=== PATIENT | female | born 2000 | race Caucasian/White ===

== ENCOUNTER 2019-10-10 10:02 | Observation (INO) | payer BC, SELFPAY ==
[2019-10-10 12:00] VITALS: BP 128/63; PULSE 86
[2019-10-10 12:16] LABS: Basophils Percent Auto 0.2 % (0.2-1.2); Eosinophils Absolute Auto 0.2 K/mm3 (0-0.3); Eosinophils Percent Auto 1.2 % (0-4.4); Hematocrit 33.3 % (37.0-47.0); Hemoglobin 11.5 g/dL (12.0-15.0); Immature Granulocyte Absolute 0.16 K/mm3 (0.00-0.031); Immature Granulocyte Percent A 1.2 % (0-0.5); Lymphocytes Absolute Auto 1.97 K/mm3 (0.9-3.2); Lymphocytes Percent Auto 14.7 % (18.3-44.2); Mean Corpuscular HGB Conc 34.5 g/dl (32-36); Mean Corpuscular Volume 92.8 fl (80-100); Mean Platelet Volume 9.7 fl (7.4-10.4); Monocytes Absolute Auto 1.4 K/mm3 (0.1-0.6); Monocytes Percent Auto 10.2 % (2.6-8.5); Neutrophils Absolute Auto 9.7 K/mm3 (1.3-6.7); Neutrophils Percent Auto 72.5 % (45.5-73.1); Platelet Count Result 304 k/mm3 (150-375); Red Blood Count 3.59 M/mm3 (4.2-5.4); Red Cell Distribution Width 12.5 % (11.5-14.5); White Blood Count 13.4 K/mm3 (4.5-10.0)
--- NOTE | 2019-11-01 07:43 | PM.OBTRLD ---
OB - Triage/Final Diagnosis Evaluation Laboratory results: Laboratory Tests 10/10/19 12:09 WBC 13.4 H RBC 3.59 L Hgb 11.5 L Hct 33.3 L MCV 92.8 MCH 32.0 MCHC 34.5 RDW 12.5 Plt Count 304 MPV 9.7 Immature Gran % (Auto) 1.2 H Neut % (Auto) 72.5 Lymph % (Auto) 14.7 L [place] % (Auto) 10.2 H Eos % (Auto) 1.2 Baso % (Auto) 0.2 Lymph # (Auto) 1.97 [place] # (Auto) 1.4 H Eos # (Auto) 0.2 Baso # (Auto) 0.0 Abs Immat Gran (auto) 0.16 H Absolute Neuts (auto) 9.7 H Absolute Nucleated RBC 0.0 Nucleated RBC % 0.0 Final Diagnosis (1) Spotting affecting in second trimester: Code(s): O26.852 - Spotting complicating , second trimester Status: Acute
== END 2019-10-10 13:20 | disposition home or self-care (01) ==
PROVIDERS: Admitting Provider Obstetrics & Gynecology; Visit Provider Obstetrics & Gynecology
DX: O26.852 Spotting complicating pregnancy, second trimester (principal); Z3A.00 Weeks of gestation of pregnancy not specified
CPT/HCPCS: 36415; 85025; G0378; G0379

== ENCOUNTER → 2019-10-18 16:00 | Outpatient (CLI) | payer BC, SELFPAY ==
--- NOTE | ~2019-10-18 | US_ITS ---
EXAMINATION: US OB limited DATE: 10/18/2019 16:17 INDICATION: Vaginal bleeding during third trimester , follow-up low-lying placenta TECHNIQUE: Real-time ultrasound of the pelvis was performed. The interpreting radiologist was not pre sent for the study. COMPARISON: None. FINDINGS: There is a single living fetus in vertex presentation. The placenta is posterior and comple tely covers the internal cervical os. cardiac activity and movement are noted. hear t rate is 146 beats per minute (bpm). The amniotic fluid index is subjectively normal. IMPRESSION: 1. Complete placenta previa. 2. Single living fetus in vertex presentation. Reviewed, dictated and finalized at location A.
== END ==
PROVIDERS: Visit Provider Nurse Practitioner
DX: O44.42 Low lying placenta NOS or without hemorrhage, second trimester (principal); Z3A.00 Weeks of gestation of pregnancy not specified
CPT/HCPCS: 76815

== ENCOUNTER → 2019-11-25 10:37 | Outpatient (CLI) | payer OTHER, BC, SELFPAY ==
--- NOTE | ~2019-11-25 | US_ITS ---
US OB limited 11/25/2019 11:40 Indication: Follow-up placenta previa. Procedure: Real-time Limited obstetrical ultrasound using transabdominal technique Comparison: Ultrasound dated 10/18/2019 Findings: There is a single living intrauterine in vertex presentation. Placenta is posteri or measuring 9.1 cm to the cervix. Amniotic fluid is subjectively normal. heart rate is 124 BPM . Impression: 1: Single living intrauterine in vertex presentation. 2: Posterior placenta without previa. Reviewed, dictated and finalized at location A. Impression: 1: Single living intrauterine in vertex presentation. 2: Posterior placenta without previa.
== END ==
PROVIDERS: Visit Provider Obstetrics & Gynecology Gynecology
DX: O44.40 Low lying placenta NOS or without hemorrhage, unspecified trimester (principal); Z3A.00 Weeks of gestation of pregnancy not specified
CPT/HCPCS: 76815

== ENCOUNTER 2019-12-04 04:50 | Inpatient (IN) | payer BC, SELFPAY ==
[2019-12-03 23:01] VITALS: BP 132/83; PULSE 85
[2019-12-03 23:31] VITALS: BP 128/82; PULSE 92
[2019-12-03] MEDS: NIFEdipine 10 MG CAPSULE PO (23:49)
[2019-12-03 23:50] VITALS: BMI 32.8
--- NOTE | 2019-12-03 23:50 | OBADM ---
This patient, Mariaa Merritt, admitted to the OB room Labor/Delivery/Recovery 105 for observation. Patient/family oriented to hospital policies and general routines including ID bracelet, bed and alarms, visiting hours, pain management, procedures, bathroom and other care routines, personal items, smoking policy, room service/diet, and visiting hours. Patient/Family are encouraged to report perceived risks to care and to ask questions if they do not understand what they are told or what they should do.
[2019-12-04] VITALS (82 sets, daily range): BP systolic 61–135; BP diastolic 27–81; PULSE 61–138; RESP 12–20; TEMP 36.1–37; O2SAT 93–100
--- NOTE | ~2019-12-04 | US_ITS ---
EXAMINATION: US OB limited DATE: 12/04/2019 05:24 INDICATION: Vaginal bleeding during third trimester , history of placenta previa TECHNIQUE: Real-time ultrasound of the pelvis was performed. The interpreting radiologist was not pre sent for the study. COMPARISON: None. FINDINGS: There is a single living fetus in vertex presentation. The placenta is fundal/posterior and 8.8 cm from the internal cervical os. cardiac activity and movement are noted. hea rt rate is 137 beats per minute (bpm). The amniotic fluid index is subjectively normal. IMPRESSION: 1. Single living fetus in vertex presentation. 2. Posterior/fundal placenta 8.8 cm from the internal cervical os. Reviewed, dictated and finalized at location A.
[2019-12-04] MEDS: NIFEdipine 10 MG CAPSULE PO ×2 (03:16→04:06)
[2019-12-04 03:29] LABS: Basophils Absolute Auto 0.1 K/mm3 (0.0-0.1); Basophils Percent Auto 0.6 % (0.2-1.2); Eosinophils Absolute Auto 0.4 K/mm3 (0-0.3); Eosinophils Percent Auto 2.8 % (0-4.4); Hematocrit 32.2 % (37.0-47.0); Hemoglobin 10.5 g/dL (12.0-15.0); Immature Granulocyte Percent A 0.7 % (0-0.5); Lymphocytes Absolute Auto 2.68 K/mm3 (0.9-3.2); Lymphocytes Percent Auto 19.4 % (18.3-44.2); Mean Corpuscular HGB Conc 32.6 g/dl (32-36); Mean Corpuscular Hemoglobin 29.3 pg (26-34); Mean Corpuscular Volume 89.9 fl (80-100); Mean Platelet Volume 10.7 fl (7.4-10.4); Monocytes Absolute Auto 1.2 K/mm3 (0.1-0.6); Monocytes Percent Auto 8.3 % (2.6-8.5); Neutrophils Absolute Auto 9.4 K/mm3 (1.3-6.7); Neutrophils Percent Auto 68.2 % (45.5-73.1); Platelet Count Result 293 k/mm3 (150-375); Red Blood Count 3.58 M/mm3 (4.2-5.4); Red Cell Distribution Width 12.7 % (11.5-14.5); White Blood Count 13.8 K/mm3 (4.5-10.0)
[2019-12-04] MEDS: LACTATED RINGERS 1,000 ML 999 ML IV CONT (04:06)
--- NOTE | 2019-12-04 05:20 | P.HP_ITS ---
Obstetrics - Admit Note Admission Note: record reviewed. Pertinent additions to the history and/or any subsequent changes in the physical findings that are not consistent with the expected course of the were found. Additions to the history and/or subsequent changes in the physical findings follow. 19 yo G1 at 34 6/7 wks here with complaint of leaking and bleeding. On arrival, dried blood down legs and minimal contractions. Contractions increased slightly and given Procardia x 1. Around 3 am, passed 100 cc clot and contractions increased. Given second procardia, IV started, u/s ordered, and labs ordered. Per RN when got up to bathroom, had watery blood noted dripping. Had another gush of about 355 cc and I was called to come to evaluate. Bedside u/s by me shows vertex without previa, low fluid with one pocket at fundus, and normal appearing placenta. U/s arrived as I was finished and agreed with assess ment. Cervix checked and 4/100/-3. Will labor and obs FHTs and bleeding.
[2019-12-04] MEDS: AMPICILLIN 2 GM/NS 100 ML 2 GM/100 ML BAG IVPB (05:21)
--- NOTE | 2019-12-04 05:40 | WPDANESEPPF ---
Anes - Initial Pre Proc Eval Procedure: Operation Date: 12/04/19 05:30 Proposed Procedures p Section - Alejandra Garcia MD Date/Time: 12/04/19 06:59 Surgeon: Alejandra Garcia MD Pre Op Diagnosis: bradycardia Pre Op Diagnosis: IUP 34 6/7 wks; bradycardia Patient Data Age: 19 Gender: F Height: 1.6 m Weight: 84 kg Last Vital Signs Temp 36.7 C 12/04/19 05:20 Pulse 79 12/04/19 06:46 BP 98/54 L 12/04/19 06:46 Pulse Ox 100 12/04/19 06:58 Allergies Allergy/AdvReac Type Severity Reaction Status Date / Time No Known Allergies Allergy Verified 12/03/19 23:37 Home Medications Medication Instructions Recorded Confirmed Type PNV cmb#95-ferrous fumarate-FA 1 tablet PO DAILY 12/04/19 12/04/19 History [] nitrofurantoin monohyd/m-cryst 100 mg PO DAILY 12/04/19 12/04/19 History [Macrobid] Laboratory Tests 12/04/19 12/04/19 12/04/19 03:20 03:20 05:26 WBC 13.8 K/mm3 H K/mm3 (4.5-10.0) RBC 3.58 M/mm3 L M/mm3 (4.2-5.4) Hgb 10.5 g/dL L g/dL (12.0-15.0) Hct 32.2 % L % (37.0-47.0) MCV 89.9 fl fl (80-100) MCH 29.3 pg pg (26-34) MCHC 32.6 g/dl g/dl (32-36) RDW 12.7 % % (11.5-14.5) Plt Count 293 k/mm3 k/mm3 (150-375) MPV 10.7 fl H fl (7.4-10.4) Immature Gran % (Auto) 0.7 % H % (0-0.5) Neut % (Auto) 68.2 % % (45.5-73.1) Lymph % (Auto) 19.4 % % (18.3-44.2) [place] % (Auto) 8.3 % % (2.6-8.5) Eos % (Auto) 2.8 % % (0-4.4) Baso % (Auto) 0.6 % % (0.2-1.2) Lymph # (Auto) 2.68 K/mm3 K/mm3 (0.9-3.2) [place] # (Auto) 1.2 K/mm3 H K/mm3 (0.1-0.6) Eos # (Auto) 0.4 K/mm3 H K/mm3 (0-0.3) Baso # (Auto) 0.1 K/mm3 K/mm3 (0.0-0.1) Abs Immat Gran (auto) 0.10 K/mm3 H K/mm3 (0.00-0.031) Absolute Neuts (auto) 9.4 K/mm3 H K/mm3 (1.3-6.7) Absolute Nucleated RBC 0.0 K/mm3 K/mm3 (0.0-0.012) Nucleated RBC % 0.0 % % (0.0-0.2) Hep Bs Antigen Rubella IgG Antibody Pending Blood Type A Positive Antibody Screen Negative 12/04/19 05:26 WBC RBC Hgb Hct MCV MCH MCHC RDW Plt Count MPV Immature Gran % (Auto) Neut % (Auto) Lymph % (Auto) [place] % (Auto) Eos % (Auto) Baso % (Auto) Lymph # (Auto) [place] # (Auto) Eos # (Auto) Baso # (Auto) Abs Immat Gran (auto) Absolute Neuts (auto) Absolute Nucleated RBC Nucleated RBC % Hep Bs Antigen Pending Rubella IgG Antibody Blood Type Antibody Screen Patient hx anesthesia problems: none Family hx anesthesia problems: none [facility] Past Medical History Medical History Depression Spotting affecting in second trimester Anes - Eval Final PreProcedure Day of Procedure 12/04/19 06:59 Patient weight: overweight Heart: regular rate and rhythm Lungs: clear to auscultation and normal air movement Airway: Mallampati scale class II Neurological: alert and oriented ASA classification: II Emergent: yes Anesthetic plan: proceed Anesthesia type and monitoring: regional spinal and standard monitoring Informed Consent: The patient's anesthetic plan and its attendant risks and benefits were discussed with the patient/family/POA. Questions were solicited and answers provided to the satisfaction of the patient/family/POA.
--- NOTE | 2019-12-04 06:17 | PM.IMHP ---
H&P: HPI History of Present Illness Date/Time: 12/04/19 06:17 Chief complaint: Vag. bleed Narrative: Mariaa Merritt is a 19 year old female G1 here with PTL, PROM, and bleeding at 34 6/7 wks. See admit note. As I was writing my admit note, deep variable followed by 6 min bradycardia. Taken to OR for urgent csection for bradycardia. On arrival, FHTs back to 120's and remained for several minutes. Decision was made to proceed with csection but to place spinal on side while monitoring FHTs. FHT's remained reassuring and no further decels. Proceeded with csection under spinal. [facility] Past Medical History Medical History (Updated 12/04/19 @ 06:23 by Alejandra Garcia MD) Depression Spotting affecting in second trimester Meds Home Medications and Allergies Home Medications Medication Instructions Recorded Confirmed Type PNV cmb#95-ferrous fumarate-FA 1 tablet PO DAILY 12/04/19 12/04/19 History [] nitrofurantoin monohyd/m-cryst 100 mg PO DAILY 12/04/19 12/04/19 History [Macrobid] Allergies Allergy/AdvReac Type Severity Reaction Status Date / Time No Known Allergies Allergy Verified 12/03/19 23:37 Vital Signs Vital Signs - 24 hr 12/03/19 23:01 12/03/19 23:31 12/04/19 00:01 Temperature Pulse Rate 85 92 82 Blood Pressure 132/83 128/82 128/79 Pulse Oximetry 12/04/19 00:02 12/04/19 01:01 12/04/19 01:31 Temperature 98.2 F Pulse Rate 87 88 Blood Pressure 130/81 119/63 Pulse Oximetry 12/04/19 02:01 12/04/19 02:31 12/04/19 03:01 Temperature Pulse Rate 92 98 94 Blood Pressure 122/60 122/66 114/74 Pulse Oximetry 12/04/19 03:17 12/04/19 03:31 12/04/19 04:01 Temperature 98.3 F Pulse Rate 87 78 Blood Pressure 125/76 106/56 L Pulse Oximetry 12/04/19 04:09 12/04/19 04:14 12/04/19 04:16 Temperature Pulse Rate 87 Blood Pressure 122/62 Pulse Oximetry 96 100 12/04/19 04:19 12/04/19 04:24 12/04/19 04:29 Temperature Pulse Rate Blood Pressure Pulse Oximetry 99 100 100 12/04/19 04:31 12/04/19 04:34 12/04/19 04:39 Temperature Pulse Rate 81 Blood Pressure 135/79 Pulse Oximetry 100 100 12/04/19 04:44 12/04/19 04:48 12/04/19 04:49 Temperature Pulse Rate 138 H Blood Pressure 103/27 L Pulse Oximetry 100 100 12/04/19 04:54 12/04/19 04:59 12/04/19 05:02 Temperature Pulse Rate 89 Blood Pressure 134/74 Pulse Oximetry 100 100 12/04/19 05:04 12/04/19 05:19 12/04/19 05:20 Temperature 98.1 F Pulse Rate Blood Pressure Pulse Oximetry 100 100 12/04/19 05:23 12/04/19 05:24 12/04/19 05:26 Temperature Pulse Rate 91 90 84 Blood Pressure 61/47 L 74/45 L 104/53 L Pulse Oximetry 100 12/04/19 05:29 Temperature Pulse Rate Blood Pressure Pulse Oximetry 100 Exam Const: General: uncomfortable (with contractions) GI: GI Palp: Yes Soft to palpation, No Tenderness to palpation present (GI) and No Guarding due to palpation present (GI) : Other: cervix 4/100/-3 vtx H&P: Results Labs Labs: Short CBC 12/04/19 Range/Units 03:20 WBC 13.8 H (4.5-10.0) K/mm3 Hgb 10.5 L (12.0-15.0) g/dL Hct 32.2 L (37.0-47.0) % Plt Count 293 (150-375) k/mm3 Assessment and Plan Assessment and plan (1) with 34 to 36 completed weeks gestation: Status: Acute (2) bradycardia: Status: Acute Assessment and Plan: Proceed with urgent csection Peds present (3) Vaginal bleeding during : Code(s): O46.90 - Antepartum hemorrhage, unspecified, unspecified trimester Status: Acute (4) labor: Code(s): O60.00 - labor without delivery, unspecified trimester Status: Acute (5) PROM (premature rupture of membranes): Code(s): O42.90 - Premature rupture of membranes, unspecified as to length of time between rupture and onset of labor, unspecified weeks of gestation
--- NOTE | 2019-12-04 06:24 | PM.OBDSVD ---
DS: Admitting Diagnosis Admitting Diagnosis Admitting Diagnosis: Vaginal bleed at 34 6/7 wks DS: Discharge Diagnosis Discharge Diagnosis (1) with 34 to 36 completed weeks gestation: Status: Acute (2) bradycardia: Status: Acute (3) Vaginal bleeding during : Code(s): O46.90 - Antepartum hemorrhage, unspecified, unspecified trimester Status: Acute (4) PROM (premature rupture of membranes): Code(s): O42.90 - Premature rupture of membranes, unspecified as to length of time between rupture and onset of labor, unspecified weeks of gestation Status: Acute (5) labor: Code(s): O60.00 - labor without delivery, unspecified trimester Status: Acute OB - DS: Summary OB Procedures : Ultrasound OB Procedures Intrapartum: low cervical, transverse OB Procedures: : None Peripartum Data Infant Delivery Method: Section complications: none Status at Discharge Functional status at discharge: independent ambulation Overall status at discharge: patient is progressing back to baseline Time Spent with Patient Time attestation: Total time spent providing and/or coordinating discharge services: DS: Data Data Completed and Pending Labs on day of discharge: Labs from last 24 hours 12/04/19 12/04/19 12/04/19 05:26 05:26 03:20 WBC RBC Hgb Hct MCV MCH MCHC RDW Plt Count MPV Immature Gran % (Auto) Neut % (Auto) Lymph % (Auto) [place] % (Auto) Eos % (Auto) Baso % (Auto) Lymph # (Auto) [place] # (Auto) Eos # (Auto) Baso # (Auto) Abs Immat Gran (auto) Absolute Neuts (auto) Absolute Nucleated RBC Nucleated RBC % Hep Bs Antigen Pending Rubella IgG Antibody Pending Blood Type A Positive Antibody Screen Negative 12/04/19 03:20 WBC 13.8 H RBC 3.58 L Hgb 10.5 L Hct 32.2 L MCV 89.9 MCH 29.3 MCHC 32.6 RDW 12.7 Plt Count 293 MPV 10.7 H Immature Gran % (Auto) 0.7 H Neut % (Auto) 68.2 Lymph % (Auto) 19.4 [place] % (Auto) 8.3 Eos % (Auto) 2.8 Baso % (Auto) 0.6 Lymph # (Auto) 2.68 [place] # (Auto) 1.2 H Eos # (Auto) 0.4 H Baso # (Auto) 0.1 Abs Immat Gran (auto) 0.10 H Absolute Neuts (auto) 9.4 H Absolute Nucleated RBC 0.0 Nucleated RBC % 0.0 Hep Bs Antigen Rubella IgG Antibody Blood Type Antibody Screen Discharge Plan Discharge Attending physician on discharge: Alejandra Garcia Consulting providers: Abraham Heck Discharging Clinician: Alejandra Garcia Anticipated Discharge Date/Time: 12/07/19 06:25 Patient Disposition: Home, Self-Care Activity: may shower, may drive after 2 weeks and pelvic rest Diet: regular Wound Care Instructions: incision open to air Discharge Instructions: Education: Mom and Baby Guide Given to: Mother Follow-Up: Call your delivering provider's office for an appointment to be seen in: 1 Week [facility]. Appointment Date/Time: deferred; OK'd with Dr. Paulino; mother to see Dr. Garcia in the office in one week. BREAST CARE: * Wear a snug supportive bra. * For engorgement discomfort: Breast Feeding: * Apply warm moist washcloths * Express milk as needed to relieve engorgement * Wear loose clothing Bottle Feeding: * May apply ice packs * For sore nipples: * Identify correct latch-on * Apply warm moist washcloths before and after nursing * Air dry nipples after nursing * May apply Lansinoh cream to nipples ABDOMINAL INCISION: (if applicable) * Allow incision to air dry * Do NOT use lotions for powders on your incision * When showering, allow soap and water to run over the incision, but do not wash incision EPISIOTOMY/PERINEAL CARE: * Unt
--- NOTE | 2019-12-04 06:26 | P.OP_ITS ---
Procedure Note - Detailed Date of procedure: 12/04/19 Pre-op diagnosis: IUP 34 6/7 wks; bradycardia Vaginal bleeding; PTL; PROM Post-op diagnosis: same Procedure performed: LTCS Description of procedure: The patient was taken to the operating room for emergent . Upon arrival to the operating room heart tones were back to a normal range at 120's. Decision was made to observe heart tones and then decide on anesthesia. heart tones remained in the normal range so decision was made to proceed with spinal on the patient's side while monitoring heart tones. Spinal anesthesia was placed. Patient was returned to her supine position with a leftward tilt. Patient was prepped and draped in the usual sterile fashion. Once anesthesia was deemed adequate, Pfannenstiel skin incision was made with a scalpel and carried down to the underlying layer of fascia. Fascia was nicked in the midline with the scalpel. Fascia was extended laterally using Quinones scissors. Ochsner was used to tent the fascia which was then dissected off using sharp and blunt dissection. The rectus muscles were in the midline and the peritoneum tented. Peritoneum was entered with Metzenbaum. The incision is extended with blunt traction. Bladder blade is placed and the vesicouterine peritoneum was tented and entered with Metzenbaum scissors. The bladder flap was then created digitally. The lower uterine segment was incised in a transverse fashion with a scalpel. The incision is extended with blunt traction. Clear fluid is noted upon entering the amniotic cavity. The infant's head is brought up into the incision and delivered while the community program assistant applied with fundal pressure. Nuchal cord x1 is reduced. The cord is clamped and cut and the handed to the waiting nursery nurse. The placenta is removed using manual traction. The uterine incision is closed in situ with 0 Monocryl in a running locked fashion. Same suture was used to imbricate. Good hemostasis is noted. The cul-de-sac and gutters are irrigated. The incision is again inspected noted to be hemostatic. The fascia was closed using 0 Vicryl in a running fashion. The subcutaneous tissues are irrigated and made hemostatic using Bovie cautery. The skin is closed using 4 0 Vicryl in a subcuticular fashion. Dermaflex is placed over the incision. Patient is given ampicillin preoperatively that was still running at the time of entering the OR. She was not given Ancef. Sponge instrument needle counts are correct per the OR staff. Anesthesia: spinal Surgeon: Alejandra Garcia MD Estimated blood loss (mL): 325 (in OR with approx 500 cc blood and amniotic fluid preop) Drains: Yes (tariq) Packing: No Pathology: yes (placenta) Complications: No immediate complications Condition: stable Disposition: PACU Findings: clear fluid upon entering amniotic cavity; male with 8/9 Apgars; Weight 5#10oz; normal appearing tubes, ovaries, and uterus; placenta appears normal
[2019-12-04 07:04] LABS: Rubella IgG Antibody 9.4 IU/ML
[2019-12-04 07:08] LABS: Hepatitis B Surface Antigen Negative (Negative)
[2019-12-04 08:01] LABS: HIV 1/2 Ab P24 Ag Result Negative (Negative)
[2019-12-04] MEDS: LORATADINE 10 MG TABLET PO (08:20)
[2019-12-04] MEDS: OXYTOCIN 30 UNITS/NS 500 ML 30 UNITS/500 ML BAG 125 UNITS IV CONT (08:34)
--- NOTE | 2019-12-04 11:08 | OBPPTRN ---
[id number] Patient transferred to room #290 via stretcher. Support person present. Oriented to unit, room, information board, rooming in, admission packet and security measures. Patient verbalizes understanding.
[2019-12-04] MEDS: ONDANSETRON INJ 4 MG/2 ML VIAL IV PUSH (12:13)
[2019-12-04] MEDS: DEXTROSE 5%/0.45% SOD CHL 1,000 ML 125 ML IV CONT ×2 (13:28→23:25)
[2019-12-04] MEDS: IBUPROFEN 600 MG TABLET PO (19:02)
[2019-12-05] MEDS: IBUPROFEN 600 MG TABLET PO ×3 (04:42→19:44)
[2019-12-05 04:55] LABS: Basophils Absolute Auto 0.1 K/mm3 (0.0-0.1); Basophils Percent Auto 0.4 % (0.2-1.2); Eosinophils Absolute Auto 0.2 K/mm3 (0-0.3); Eosinophils Percent Auto 1.1 % (0-4.4); Hemoglobin 7.9 g/dL (12.0-15.0); Immature Granulocyte Absolute 0.14 K/mm3 (0.00-0.031); Immature Granulocyte Percent A 0.8 % (0-0.5); Lymphocytes Absolute Auto 2.72 K/mm3 (0.9-3.2); Lymphocytes Percent Auto 16.2 % (18.3-44.2); Mean Corpuscular HGB Conc 32.9 g/dl (32-36); Mean Corpuscular Hemoglobin 29.8 pg (26-34); Mean Corpuscular Volume 90.6 fl (80-100); Mean Platelet Volume 11.1 fl (7.4-10.4); Monocytes Absolute Auto 1.3 K/mm3 (0.1-0.6); Monocytes Percent Auto 7.6 % (2.6-8.5); Neutrophils Absolute Auto 12.4 K/mm3 (1.3-6.7); Neutrophils Percent Auto 73.9 % (45.5-73.1); Platelet Count Result 244 k/mm3 (150-375); Red Blood Count 2.65 M/mm3 (4.2-5.4); Red Cell Distribution Width 13.2 % (11.5-14.5); White Blood Count 16.8 K/mm3 (4.5-10.0)
[2019-12-05 05:00] VITALS: BP 117/63; PULSE 76; RESP 16; TEMP 36.6; O2SAT 100
[2019-12-05] MEDS: DOCUSATE SODIUM 100 MG CAPSULE PO ×2 (08:08→15:53)
[2019-12-05] MEDS: POLYSACCHARIDE IRON COMPLEX 150 MG CAPSULE PO ×2 (08:08→15:53)
[2019-12-05] MEDS: MULTIVIT/MIN/PREN/FOL AC/IRON TABLET 1 TAB PO (08:08)
[2019-12-05] MEDS: LANOLIN (LANSINOH) 7.5 GM CREAM 1 APPLIC TOPICAL (08:09)
--- NOTE | 2019-12-05 09:14 | PM.OBPNVD ---
OB - PN: Subj Subjective Date/time seen: 12/05/19 09:14 Patient comments: no complaints and pain well controlled baby status: doing well and nursing well OB - PN: Obj Data Labs CBC & Chem 7: 12/05/19 04:24 Labs: Laboratory Results - last 24 hr 12/05/19 04:24 WBC 16.8 H RBC 2.65 L Hgb 7.9 L Hct 24.0 L MCV 90.6 MCH 29.8 MCHC 32.9 RDW 13.2 Plt Count 244 MPV 11.1 H Immature Gran % (Auto) 0.8 H Neut % (Auto) 73.9 H Lymph % (Auto) 16.2 L [place] % (Auto) 7.6 Eos % (Auto) 1.1 Baso % (Auto) 0.4 Lymph # (Auto) 2.72 [place] # (Auto) 1.3 H Eos # (Auto) 0.2 Baso # (Auto) 0.1 Abs Immat Gran (auto) 0.14 H Absolute Neuts (auto) 12.4 H Absolute Nucleated RBC 0.0 Nucleated RBC % 0.0 OB - PN A/P Plan day: 1 Plan: routine care Time Spent With Patient Time: Total time spent is greater than 50% in coordination of care (as documented) at patient's floor/unit and/or counseling patient: Exam GI: Other: inc c/d/i : Bimanual exam- vagina & uterus: other (Uterus firm, nt @U)
--- NOTE | 2019-12-05 09:15 | PC.NURSE ---
Consulted with patient, mother has to breast. is latched deeply nursing eagerly with long draws and freq swallowing. Reviewed feeding cues, frequencies, duration of feedings, feeding elimination flow sheet, and signs of adequate intake. Reviewed positioning/alignment in cross cradle, holding breast in U hold and guided asymmetrical latch on. Discussed rational for each. Reviewed signs of a correct latch, effective nursing and suck swallow ratio. Infant was able to maintain latch without discomfort to mother. Nipple care reviewed. Discussed the infant, with needing to wake and stimulate to keep awake and feeding effectively for increased intake and to stimulate milk supply. Instructed mother to call out for RN assistance if she is unable to latch infant for feeding or she has discomfort with nursing. Instructed feeding should be initiated three hours from start of last feeding or if feeding cues are noted before. Mother voiced understanding of information shared.
--- NOTE | 2019-12-05 10:23 | WPDANLDPN2 ---
Anes-Prog Note L&D Date/Time: 12/05/19 10:23 Comfortable throughout: section Neuraxial method: spinal Epidural/Spinal procedure site: clean & non-tender Neuro status: Neuro function grossly intact. Cardiovascular status: normal Respiratory status: normal Airway patency: baseline Mental status: baseline Post-Op hydration status: normal Vital Signs: Last Vital Signs Temp 36.6 C 12/05/19 05:00 Pulse 76 12/05/19 05:00 Resp 16 12/05/19 05:00 BP 117/63 12/05/19 05:00 Pulse Ox 100 12/05/19 05:00 I/O: Intake & Output 12/04/19 12/05/19 12/05/19 23:59 07:59 15:59 Intake Total 1000 1200 240 Output Total 150 2400 Balance 850 -1200 240 Post-procedural complaints: none Patient feedback: Patient satisfied with anesthetic care.
--- NOTE | 2019-12-05 10:24 | WPDANLDNPN2 ---
Anes-Prog Note L&D-Neuraxial Date/Time: 12/05/19 10:24 Neuraxial medications: intrathecal PF morphine Opiod-related complaints: none Patient feedback: Patient satisfied with post-operative pain management.
[2019-12-05] MEDS: SIMETHICONE 80 MG TAB.CHEW PO (15:53)
[2019-12-05 19:50] VITALS: BP 140/75; PULSE 97; RESP 18; TEMP 37.4
[2019-12-06] MEDS: IBUPROFEN 600 MG TABLET PO ×3 (04:49→18:53)
--- NOTE | 2019-12-06 07:28 | PM.OBPNVD ---
OB - PN: Subj Subjective Date/time seen: 12/06/19 07:28 Patient comments: no complaints and pain well controlled baby status: doing well OB - PN: Obj Data Labs CBC & Chem 7: 12/05/19 04:24 OB - PN A/P Plan day: 2 Plan: routine care Time Spent With Patient Time: Total time spent is greater than 50% in coordination of care (as documented) at patient's floor/unit and/or counseling patient: Exam GI: Other: inc c/d/i : Bimanual exam- vagina & uterus: other (Uterus firm, nt @U)
[2019-12-06] MEDS: SIMETHICONE 80 MG TAB.CHEW PO (08:01)
[2019-12-06] MEDS: MULTIVIT/MIN/PREN/FOL AC/IRON TABLET 1 TAB PO (08:01)
[2019-12-06] MEDS: POLYSACCHARIDE IRON COMPLEX 150 MG CAPSULE PO (08:01)
[2019-12-06] MEDS: DOCUSATE SODIUM 100 MG CAPSULE PO (08:01)
[2019-12-06 08:23] VITALS: BP 128/69; PULSE 88; RESP 14; TEMP 36.8
[2019-12-06 19:14] VITALS: BP 132/80; PULSE 92; RESP 16; TEMP 36.8; O2SAT 100
[2019-12-07] MEDS: IBUPROFEN 600 MG TABLET PO ×2 (06:05→12:35)
[2019-12-07 08:20] VITALS: BP 128/80; PULSE 82; RESP 18; TEMP 37.4; O2SAT 99
[2019-12-07] MEDS: MULTIVIT/MIN/PREN/FOL AC/IRON TABLET 1 TAB PO (09:48)
[2019-12-07] MEDS: DOCUSATE SODIUM 100 MG CAPSULE PO (09:48)
[2019-12-07] MEDS: POLYSACCHARIDE IRON COMPLEX 150 MG CAPSULE PO (09:48)
[2019-12-07] MEDS: MEASLES,MUMPS,RUBELLA VACCINE 0.5 ML VIAL SUB-Q (10:51)
--- NOTE | 2019-12-07 11:30 | PC.NURSE ---
Observed mother is able to independently latch infant with appropriate positioning/alignment. She denies any nipple discomfort, is feeding as required and waking infant to feed if needed. has had at least 8 effective feedings in the past 24 hours, and is currently meeting outcomes for weight, output, jaundice and feeding frequencies. nurses eagerly with long draws and freq. swallowing noted. Mother will continue with supplementation after all feedings until seen by infant provider s ordered by ICP for . Mother states she feels confident to continue effective / with supplementation at home. Reviewed transition to breast milk, signs of adequate intake, and engorgement/relief. Instructed to call ICP if intake/output less than required. Reviewed regular medications mother is taking. Information provided per Cece. Reviewed community resources on the [employer] [address] website and in the Mom/Baby guide. Information on outpatient services provided. Mother has no further questions at this time. Mother is concerned with supplementation, reviewed her ICP will monitor and may discontinue supplement when is gaining weight and adequately empting the breast.
--- NOTE | 2019-12-07 11:44 | PC.NURSE ---
Parents viewed the discharge DVD on hospital computer.
== END 2019-12-07 13:41 | disposition home or self-care (01) | DRG 786 ==
LOC: ANHLDR 06:31 → ANHOB2 16:21 → ANHLDR 12-08 14:06 → ANHOB2 12-08 14:06
PROVIDERS: Admitting Provider Obstetrics & Gynecology Gynecology; Visit Provider Obstetrics & Gynecology
PROC: 10D00Z1 Extraction of Products of Conception, Low, Open Approach (ICD-10-PCS; CPT 59514; principal; 2019-12-04 05:30)
DX: O42.913 Preterm premature rupture of membranes, unspecified as to length of time between rupture and onset of labor, third trimester (principal); O60.14X0 Preterm labor third trimester with preterm delivery third trimester, not applicable or unspecified; Z37.0 Single live birth; Z3A.34 34 weeks gestation of pregnancy; O69.81X0 Labor and delivery complicated by cord around neck, without compression, not applicable or unspecified; O36.8330 Maternal care for abnormalities of the fetal heart rate or rhythm, third trimester, not applicable or unspecified
CPT/HCPCS: 36415; 76815; 85025; 86703; 86762; 86850; 86900; 86901; 87340; 88307; 90710; A9270; G0432; J0131; J0290; J0330; J2274; J2370; J2405; J2590; J2704; J2795; J7120